=== PATIENT | male | born 1955 | race Caucasian/White ===

== ENCOUNTER → 2017-01-13 | Outpatient (CLI) | payer OTHER ==
[2017-01-13 10:45] LABS: ALBUMIN 4.1 g/dL (3.4-5.0); ALBUMIN/GLOBULIN RATIO 1.3 (1.0-1.7); CREATININE 0.8 mg/dL (0.7-1.3); GFR 98.3; POTASSIUM 4.9 mmol/L (3.5-5.1); TOTAL BILIRUBIN 0.5 mg/dL (0.2-1.0); TOTAL PROTEIN 7.2 g/dL (6.4-8.2)
[2017-01-13 10:47] LABS: CHOLESTEROL/HDL RATIO 5.4
== END | disposition home or self-care (01) ==
LOC: LAB 09:40
PROVIDERS: ATTEND Family Medicine
DX: E11.9 Type 2 diabetes mellitus without complications (principal)
CPT/HCPCS: 36415; 80053; 80061; 82043; 82570; 83036

== ENCOUNTER → 2017-05-04 | Outpatient (CLI) | payer OTHER ==
[2017-05-04 12:14] LABS: BASO # 0.1 x10^3/uL (0.0-0.2); BASO % 1 % (0-3); EOS % 4 % (0-3); HEMATOCRIT 53.5 % (39.0-53.0); HEMOGLOBIN 17.7 g/dL (13.0-17.5); LYMPH # 1.7 x10^3/uL (1.0-4.8); LYMPH % 18 % (24-48); MEAN CORPUSCULAR HEMOGLOBIN 30 pg (25-35); MEAN CORPUSCULAR HGB CONC 33 g/dL (31-37); MEAN CORPUSCULAR VOLUME 90 fL (79-100); MONO % 10 % (0-9); NEUT % 67 % (31-73); PLATELET COUNT 271 x10^3/uL (140-400); RED BLOOD COUNT 5.96 x10^6/uL (4.30-5.70); RED CELL DISTRIBUTION WIDTH 13.2 % (11.5-14.5); WHITE BLOOD COUNT 9.1 x10^3/uL (4.0-11.0)
[2017-05-04 12:28] LABS: ALBUMIN 4.4 g/dL (3.4-5.0); ALBUMIN/GLOBULIN RATIO 1.2 (1.0-1.7); CALCIUM 9.5 mg/dL (8.5-10.1); CHOLESTEROL/HDL RATIO 2.7; CREATININE 0.8 mg/dL (0.7-1.3); GFR 98.3; POTASSIUM 4.9 mmol/L (3.5-5.1); TOTAL BILIRUBIN 0.4 mg/dL (0.2-1.0); TOTAL PROTEIN 8.1 g/dL (6.4-8.2)
== END | disposition home or self-care (01) ==
LOC: LAB 11:46
PROVIDERS: ATTEND Family Medicine
DX: Z12.5 Encounter for screening for malignant neoplasm of prostate (principal); E78.2 Mixed hyperlipidemia; E11.9 Type 2 diabetes mellitus without complications
CPT/HCPCS: 36415; 80053; 80061; 83036; 85025; G0103

== ENCOUNTER → 2018-02-16 | Outpatient (CLI) | payer OTHER ==
[2017-11-15 09:25] VITALS: BP 101/57
[~2018-02-16] MED LIST: ATOR40TA59 PO; DAPA10TA PO; GLIM4TAB2 PO; LINA5TAB4 PO; LISI-338 PO; METF10007 PO
[2018-02-16 10:01] LABS: BASO % 0 % (0-3); EOS # 0.3 x10^3/uL (0.0-0.7); EOS % 3 % (0-3); HEMATOCRIT 45.4 % (39.0-53.0); HEMOGLOBIN 15.5 g/dL (13.0-17.5); LYMPH # 1.3 x10^3/uL (1.0-4.8); LYMPH % 13 % (24-48); MEAN CORPUSCULAR HEMOGLOBIN 30 pg (25-35); MEAN CORPUSCULAR HGB CONC 34 g/dL (31-37); MEAN CORPUSCULAR VOLUME 89 fL (79-100); MONO # 1.1 x10^3/uL (0.0-1.1); MONO % 11 % (0-9); NEUT # 7.3 x10^3uL (1.8-7.7); NEUT % 73 % (31-73); PLATELET COUNT 240 x10^3/uL (140-400); RED CELL DISTRIBUTION WIDTH 13.4 % (11.5-14.5)
[2018-02-16 10:17] LABS: ALBUMIN 3.9 g/dL (3.4-5.0); ALBUMIN/GLOBULIN RATIO 1.2 (1.0-1.7); CALCIUM 9.5 mg/dL (8.5-10.1); CREATININE 0.7 mg/dL (0.7-1.3); GFR 114.3; POTASSIUM 4.5 mmol/L (3.5-5.1); TOTAL BILIRUBIN 0.5 mg/dL (0.2-1.0); TOTAL PROTEIN 7.2 g/dL (6.4-8.2)
[2018-02-16 10:19] LABS: CHOLESTEROL/HDL RATIO 2.8
[2018-02-17 03:16] LABS: HEMOGLOBIN A1C 10.3 % (4.8-5.6)
== END | disposition home or self-care (01) ==
LOC: LAB 09:05
PROVIDERS: ATTEND Family Medicine
DX: Z12.5 Encounter for screening for malignant neoplasm of prostate (principal); Z23 Encounter for immunization; E11.9 Type 2 diabetes mellitus without complications; E78.2 Mixed hyperlipidemia; R53.83 Other fatigue; I10 Essential (primary) hypertension; E78.00 Pure hypercholesterolemia, unspecified; Z79.84 Long term (current) use of oral hypoglycemic drugs; Z87.891 Personal history of nicotine dependence; Z79.899 Other long term (current) drug therapy; Z80.0 Family history of malignant neoplasm of digestive organs; Z83.3 Family history of diabetes mellitus
CPT/HCPCS: 36415; 80053; 80061; 83036; 84443; 85025; G0103

== ENCOUNTER → 2018-10-04 | Outpatient (CLI) | payer OTHER ==
[2017-11-15 09:25] VITALS: BP 101/57
[~2018-10-04] MED LIST changes: +LINA5TAB PO; -LINA5TAB4 PO
[2018-10-04 09:39] LABS: BASO % 1 % (0-3); EOS # 0.4 x10^3/uL (0.0-0.7); EOS % 5 % (0-3); HEMATOCRIT 48.5 % (39.0-53.0); HEMOGLOBIN 15.9 g/dL (13.0-17.5); LYMPH # 1.2 x10^3/uL (1.0-4.8); LYMPH % 18 % (24-48); MEAN CORPUSCULAR HEMOGLOBIN 29 pg (25-35); MEAN CORPUSCULAR HGB CONC 33 g/dL (31-37); MEAN CORPUSCULAR VOLUME 89 fL (79-100); MONO # 0.8 x10^3/uL (0.0-1.1); MONO % 11 % (0-9); NEUT # 4.5 x10^3uL (1.8-7.7); NEUT % 65 % (31-73); PLATELET COUNT 225 x10^3/uL (140-400); RED BLOOD COUNT 5.48 x10^6/uL (4.30-5.70); RED CELL DISTRIBUTION WIDTH 13.5 % (11.5-14.5); WHITE BLOOD COUNT 6.9 x10^3/uL (4.0-11.0)
[2018-10-04 09:45] LABS: BILIRUBIN,URINE NEGATIVE (NEG); CLARITY,URINE CLEAR; COLOR,URINE YELLOW; NITRITE,URINE NEGATIVE (NEG); PH,URINE 6.5; PROTEIN,URINE NEGATIVE (NEG-TRACE); UROBILINOGEN,URINE 0.2 mg/dL (0.2 mg/dL)
[2018-10-04 09:54] LABS: BACTERIA,URINE 0 /HPF (0-FEW); RBC,URINE 0 /HPF (0-2); SQUAMOUS EPITHELIAL CELL,UR FEW /LPF; WBC,URINE 0 /HPF (0-4)
[2018-10-04 10:01] LABS: ALBUMIN 4.2 g/dL (3.4-5.0); ALBUMIN/GLOBULIN RATIO 1.4 (1.0-1.7); CALCIUM 9.8 mg/dL (8.5-10.1); CREATININE 0.8 mg/dL (0.7-1.3); POTASSIUM 4.5 mmol/L (3.5-5.1); TOTAL BILIRUBIN 0.6 mg/dL (0.2-1.0); TOTAL PROTEIN 7.3 g/dL (6.4-8.2)
[2018-10-04 10:07] LABS: CHOLESTEROL/HDL RATIO 2.8
[2018-10-05 11:17] LABS: HEMOGLOBIN A1C 9.7 % (4.8-5.6)
[2018-10-06 09:14] LABS: HCV ULTRA QUANT PCR HCV Not Detected IU/mL (.)
== END | disposition home or self-care (01) ==
LOC: LAB 08:51
PROVIDERS: ATTEND Family Medicine
DX: Z12.5 Encounter for screening for malignant neoplasm of prostate (principal)
CPT/HCPCS: 36415; 80053; 80061; 81001; 83036; 85025; 87521; G0103

== ENCOUNTER → 2019-07-15 | Outpatient (CLI) | payer OTHER ==
[2017-11-15 09:25] VITALS: BP 101/57
[~2019-07-15] MED LIST changes: -GLIM4TAB2 PO; +GLIM4TAB8 PO
[2019-07-15 11:44] LABS: BASO % 1 % (0-3); EOS # 0.4 x10^3/uL (0.0-0.7); EOS % 5 % (0-3); HEMATOCRIT 49.3 % (39.0-53.0); HEMOGLOBIN 16.5 g/dL (13.0-17.5); LYMPH # 1.4 x10^3/uL (1.0-4.8); LYMPH % 20 % (24-48); MEAN CORPUSCULAR HEMOGLOBIN 30 pg (25-35); MEAN CORPUSCULAR HGB CONC 33 g/dL (31-37); MEAN CORPUSCULAR VOLUME 89 fL (79-100); MONO # 0.6 x10^3/uL (0.0-1.1); MONO % 9 % (0-9); NEUT # 4.4 x10^3/uL (1.8-7.7); NEUT % 65 % (31-73); PLATELET COUNT 241 x10^3/uL (140-400); RED BLOOD COUNT 5.52 x10^6/uL (4.30-5.70); RED CELL DISTRIBUTION WIDTH 13.7 % (11.5-14.5); WHITE BLOOD COUNT 6.8 x10^3/uL (4.0-11.0)
[2019-07-15 11:50] LABS: BILIRUBIN,URINE NEGATIVE (NEG); CLARITY,URINE CLEAR; COLOR,URINE YELLOW; NITRITE,URINE NEGATIVE (NEG); PROTEIN,URINE NEGATIVE (NEG-TRACE); UROBILINOGEN,URINE 0.2 mg/dL (0.2 mg/dL)
[2019-07-15 11:59] LABS: ALBUMIN 4.2 g/dL (3.4-5.0); ALBUMIN/GLOBULIN RATIO 1.3 (1.0-1.7); CALCIUM 9.3 mg/dL (8.5-10.1); CREATININE 0.7 mg/dL (0.7-1.3); GFR 113.9; POTASSIUM 4.7 mmol/L (3.5-5.1); TOTAL BILIRUBIN 0.5 mg/dL (0.2-1.0); TOTAL PROTEIN 7.5 g/dL (6.4-8.2)
[2019-07-15 12:02] LABS: CHOLESTEROL/HDL RATIO 3.1
[2019-07-15 12:05] LABS: SQUAMOUS EPITHELIAL CELL,UR OCC /LPF
[2019-07-15 12:06] LABS: BACTERIA,URINE 0 /HPF (0-FEW); RBC,URINE 0 /HPF (0-2); WBC,URINE OCC /HPF (0-4)
[2019-07-15 23:08] LABS: HEMOGLOBIN A1C 9.5 % (4.8-5.6)
[2019-07-17 13:11] LABS: FREE PSA/PSA RATIO 27.5 % (.); PSA FREE 0.11 ng/mL; PSA TOTAL 0.4 ng/mL (0.0-4.0)
== END | disposition home or self-care (01) ==
LOC: LAB 10:57
PROVIDERS: ATTEND Family Medicine
DX: Z00.00 Encounter for general adult medical examination without abnormal findings (principal); E11.9 Type 2 diabetes mellitus without complications; E78.2 Mixed hyperlipidemia
CPT/HCPCS: 36415; 80053; 80061; 81001; 82043; 83036; 84153; 84154; 85025

== ENCOUNTER → 2020-07-17 | Outpatient (CLI) | payer OTHER ==
[2017-11-15 09:25] VITALS: BP 101/57
[~2020-07-17] MED LIST changes: -LISI-338 PO; +LISI-517 PO
[2020-07-17 11:14] LABS: BASO # 0.1 x10^3/uL (0.0-0.2); BASO % 1 % (0-3); EOS # 0.4 x10^3/uL (0.0-0.7); EOS % 6 % (0-3); HEMATOCRIT 49.7 % (39.0-53.0); HEMOGLOBIN 16.6 g/dL (13.0-17.5); LYMPH # 1.5 x10^3/uL (1.0-4.8); LYMPH % 20 % (24-48); MEAN CORPUSCULAR HEMOGLOBIN 30 pg (25-35); MEAN CORPUSCULAR HGB CONC 33 g/dL (31-37); MEAN CORPUSCULAR VOLUME 90 fL (79-100); MONO # 0.8 x10^3/uL (0.0-1.1); MONO % 10 % (0-9); NEUT # 4.8 x10^3/uL (1.8-7.7); NEUT % 63 % (31-73); PLATELET COUNT 231 x10^3/uL (140-400); RED BLOOD COUNT 5.55 x10^6/uL (4.30-5.70); RED CELL DISTRIBUTION WIDTH 13.4 % (11.5-14.5); WHITE BLOOD COUNT 7.6 x10^3/uL (4.0-11.0)
[2020-07-17 11:37] LABS: ALBUMIN/GLOBULIN RATIO 1.2 (1.0-1.7); CALCIUM 9.1 mg/dL (8.5-10.1); CREATININE 0.7 mg/dL (0.7-1.3); GFR 113.5; POTASSIUM 4.2 mmol/L (3.5-5.1); TOTAL BILIRUBIN 0.5 mg/dL (0.2-1.0); TOTAL PROTEIN 7.4 g/dL (6.4-8.2)
[2020-07-18 00:08] LABS: HEMOGLOBIN A1C 9.7 % (4.8-5.6)
== END ==
LOC: LAB 10:37
PROVIDERS: ATTEND Family Medicine
DX: Z12.5 Encounter for screening for malignant neoplasm of prostate (principal); E11.9 Type 2 diabetes mellitus without complications; E78.2 Mixed hyperlipidemia
CPT/HCPCS: 36415; 80053; 80061; 83036; 85025; G0103

== ENCOUNTER → 2020-10-06 | Outpatient (CLI) | payer OTHER ==
[2017-11-15 09:25] VITALS: BP 101/57
--- NOTE | 2020-10-06 16:29 | RAD ---
STUDY: MRI of the right shoulder without contrast INDICATION: Tendinopathy of both shoulders. COMPARISON: None. TECHNIQUE: Multiplanar MR imaging of the right shoulder performed without the use of intravenous or i ntra-articular contrast. FINDINGS: AC joint: Mild/moderate AC joint arthrosis. Very mild subacromial subdeltoid bursitis with bursal flu id overlying the supraspinatus tendon measuring up to 3 mm in thickness. Mildly thickened coracoacrom ial ligament Rotator cuff: Mild supraspinatus tendinosis. Thin, low-grade tear of the anterior supraspinatus at th e footprint involving less than 20 percent tendon cross-sectional thickness, image 16 series 6. Intac t infraspinatus, teres minor and subscapularis. Normal rotator cuff muscular bulk. Labrum: Degenerative SLAP-type tear extending from superior to posterior/superior. Long head biceps tendon: Intact and normally located. Cartilage: No full-thickness chondral defect. Bones: Marrow signal is within normal limits. Miscellaneous: Thickened inferior joint capsule with mild surrounding edema. Edema at the rotator int erval. Small amount of glenohumeral joint fluid. Fluid distention of the long head biceps tendon salazar th. Impression: 1. Thickened and edematous inferior joint capsule as well as some edema at the rotator interval. Thi s appearance can be seen with adhesive capsulitis. 2. Fluid distention of the long head biceps tendon sheath out of proportion to fluid within the join t space suggestive of tenosynovitis. The tendon remains intact and normally located. 3. No high-grade or full-thickness rotator cuff tear. Mild supraspinatus tendinosis and a tiny/low-g rade interstitial tear of the anterior supraspinatus at the footprint. 4. Degenerative SLAP-type tear extending from superior to posterior/superior. 5. Mild/moderate AC joint arthrosis and very mild subacromial subdeltoid bursitis. Electronically signed by: KALINA LEIVA MD (10/06/2020 4:27 PM) [id number]
--- NOTE | 2020-10-06 16:36 | RAD ---
STUDY: MRI of the left shoulder without contrast INDICATION: Tendinopathy of both shoulders. COMPARISON: None. TECHNIQUE: Multiplanar MR imaging of the left shoulder performed without the use of intravenous or in tra-articular contrast. FINDINGS: AC joint: Mild/moderate AC joint arthrosis. Trace fluid within the subacromial subdeltoid bursa but n ot to the extent typical of bursitis. Rotator cuff: Mild supraspinatus tendinosis. There may be a small amount of hydroxyapatite within the supraspinatus leading edge, image 11 series 18. Intact infraspinatus, teres minor and subscapularis. Rotator cuff muscular bulk is maintained. Labrum: Degenerative SLAP-type tear from superior to posterior/superior with extension of the tear to involve the intra-articular portion of the long head biceps, images 9 through 11 series 8. Long head biceps tendon: Low-grade interstitial tear of the intra-articular portion, as above. The ex tra-articular portion is intact. Cartilage: No full-thickness chondral defect is apparent. Bones: No fracture or focally aggressive marrow signal abnormality. Miscellaneous: Mildly thickened and edematous inferior joint capsule but less noticeable relative to the right shoulder. Edema seen at the rotator interval. Minimal shoulder joint fluid. Mild volume flu id within the long head biceps tendon sheath. Impression: 1. Constellation of findings which can be seen with adhesive capsulitis noting that there is less pr onounced thickening/edema of the inferior joint capsule relative to the contralateral shoulder that w as imaged on the same day. 2. No high-grade or full-thickness rotator cuff tear. Mild supraspinatus tendinosis. Possible small focus of hydroxyapatite deposition within the supraspinatus leading edge. No overt edema immediately adjacent to this finding to help suggest active calcific tendinitis. 3. Degenerative SLAP-type tear extending to involve the intra-articular long head biceps. 4. Mild/moderate AC joint arthrosis. Electronically signed by: KALINA LEIVA MD (10/06/2020 4:34 PM) [id number]
--- NOTE | 2020-10-06 17:04 | RAD ---
EXAM: Cervical spine MRI without contrast. HISTORY: Radiculopathy. TECHNIQUE: Multiplanar, multisequence magnetic resonance imaging of the cervical spine was performed without contrast. COMPARISON: None. FINDINGS: There is minimal retrolisthesis of C5 on C6. There is degenerative endplate remodeling with disc space narrowing, osteophyte ptosis and Schmorl's node formation at this level. There is additio nal endplate remodeling at the remainder of the cervical levels. There is no fracture or suspicious o sseous lesion. There is deformation of the cervical spinal cord at the mid and lower cervical levels due to central canal stenosis. There is no convincing spinal cord signal abnormality to suggest myelomalacia or chivo a. There is nonspecific signal change within the robert, most commonly due to chronic small vessel dise ase in patients of this age. At C2-C3, there is no stenosis. At C3-C4, there is mild left facet arthropathy. There is mild left foraminal stenosis. At C4-C5, there is a disc bulge and endplate remodeling. There is mild bilateral facet arthropathy. T here is uncovertebral arthropathy. There is moderate right and mild left foraminal stenosis. There is flattening of the ventral aspect of the spinal cord and moderate central canal stenosis measuring 7. 1 mm in anterior posterior dimension. At C5-C6, there is a right posterior lateral disc protrusion and osteophyte complex superimposed on a disc bulge and endplate ossified ptosis. There is mild bilateral facet arthropathy. There is right g reater than left uncovertebral arthropathy. There is severe right and moderate left foraminal stenosi s. There is deformation of the spinal cord and moderate to severe central canal stenosis measuring 6. 4 mm in anterior posterior dimension. At C6-C7, there is a broad-based left paracentral to lateral recess disc protrusion superimposed on a disc bulge and endplate remodeling. There is mild bilateral facet arthropathy. There is moderate lef t foraminal stenosis. There is flattening of the ventral aspect of spinal cord and [id number] c entral canal stenosis measuring 7.7 mm in anterior posterior dimension. IMPRESSION: 1. Multilevel degenerative change involving the cervical spine, described in detail above. This is as sociated with mild left foraminal stenosis at C3-C4, moderate right and mild left foraminal and moder ate central canal stenosis at C4-C5, severe right and moderate left foraminal and moderate to severe central canal stenosis at C5-C6 and moderate left foraminal and mild to moderate central canal stenos is at C6-C7. 2. Deformation of the cervical spinal cord at the mid lower cervical levels due to central canal sten osis. No convincing spinal cord edema or myelomalacia is seen. Electronically signed by: Rona Jerry MD (10/06/2020 5:01 PM) [id number]
== END ==
LOC: MRI 12:33
PROVIDERS: ATTEND Family Medicine
DX: M19.012 Primary osteoarthritis, left shoulder (principal); M19.011 Primary osteoarthritis, right shoulder; M48.02 Spinal stenosis, cervical region; M47.22 Other spondylosis with radiculopathy, cervical region
CPT/HCPCS: 72141; 73221

== ENCOUNTER → 2020-11-26 | Outpatient (CLI) | payer OTHER ==
[2017-11-15 09:25] VITALS: BP 101/57
[~2020-11-26] MED LIST changes: +CALC500T30 PO; +CHOL5000 PO
[2020-11-26 14:36] LABS: BASO % 1 % (0-3); EOS # 0.3 x10^3/uL (0.0-0.7); EOS % 4 % (0-3); HEMATOCRIT 43.8 % (39.0-53.0); HEMOGLOBIN 15.1 g/dL (13.0-17.5); LYMPH # 1.6 x10^3/uL (1.0-4.8); LYMPH % 21 % (24-48); MEAN CORPUSCULAR HEMOGLOBIN 31 pg (25-35); MEAN CORPUSCULAR HGB CONC 35 g/dL (31-37); MEAN CORPUSCULAR VOLUME 89 fL (79-100); MONO # 0.8 x10^3/uL (0.0-1.1); MONO % 11 % (0-9); NEUT % 64 % (31-73); PLATELET COUNT 233 x10^3/uL (140-400); RED BLOOD COUNT 4.94 x10^6/uL (4.30-5.70); RED CELL DISTRIBUTION WIDTH 13.3 % (11.5-14.5); WHITE BLOOD COUNT 7.8 x10^3/uL (4.0-11.0)
[2020-11-26 14:47] LABS: ALBUMIN 3.9 g/dL (3.4-5.0); ALBUMIN/GLOBULIN RATIO 1.4 (1.0-1.7); CALCIUM 8.9 mg/dL (8.5-10.1); CREATININE 0.8 mg/dL (0.7-1.3); GFR 97.3; POTASSIUM 4.1 mmol/L (3.5-5.1); TOTAL BILIRUBIN 0.4 mg/dL (0.2-1.0); TOTAL PROTEIN 6.6 g/dL (6.4-8.2)
[2020-11-27 04:23] LABS: HEMOGLOBIN A1C 9.5 % (4.8-5.6)
== END ==
LOC: SURGPAT 13:05
PROVIDERS: ATTEND Neurological Surgery
DX: Z01.818 Encounter for other preprocedural examination (principal); M48.02 Spinal stenosis, cervical region; M54.12 Radiculopathy, cervical region
CPT/HCPCS: 36415; 80053; 83036; 85025; 87641

== ENCOUNTER 2020-12-07 08:28 | Inpatient (IN) | payer OTHER ==
[2020-11-26 14:39] VITALS: BP 111/77
[2020-12-07] VITALS (8 sets, daily range): BP systolic 108–138; BP diastolic 69–78
[~2020-12-07] VITALS: Ht 175.3 cm; Wt 95.8 kg
[~2020-12-07 08:28] MED LIST changes: +BUPIVACAINE-EPI 0.5%-1:200000 MPF 30 ML VIAL. ONE; +GELATIN SPONGE SIZE 100. ONE; +HYDROmorphone 2 MG/ML VIAL IVP PRN; +IV RINGERS,LACTATED 1000ML 1,000 ML IV SCH; +PROCHLORPERAZINE 10 MG/2 ML VIAL. IVP PRN; +THROMBIN TOPICAL 20,000 UNIT SPRAY.SYRN KIT TP ONE; +fentaNYL PF VIAL 100 MCG/2 ML VIAL IVP PRN
[2020-12-07] MEDS: INSULIN LISPRO 100 UNIT/ML 3ML VIAL for OP,RR ONLY. SQ PRN ×3 (09:05→15:28)
--- NOTE | 2020-12-07 09:20 | PREOP HP ---
DATE OF SERVICE: 12/07/2020 HISTORY OF PRESENT ILLNESS: The patient is a pleasant 64-year-old man who is having difficulty with neck, shoulder and arm pain and weakness. He said that beginning in mid May, he developed neck pain and pain, which would radiate to both of his shoulders. The problem began after playing golf. He says that the pain comes and goes and is primarily in his shoulders and he feels as though it can reach 9/10. Activity such as lying down on his side increases his pain. He says mornings are quite painful for him. Changing positions and sitting can help. He is taking Advil. He has not fallen. He said he underwent 8 sessions of cervical physical therapy, which he said helped his range of motion and neck pain to a degree, but had no impact on his arm pain. He has been seeing orthopedic surgery for his shoulder and I believe surgery has been recommended for that. CURRENT MEDICATIONS: Tradjenta, lisinopril, glimepiride, atorvastatin, metformin, Aziga, Advil. PAST MEDICAL HISTORY: Diabetes. PAST SURGICAL HISTORY: Right knee surgery in 1977. FAMILY HISTORY: Alzheimer disease, cancer, diabetes. SOCIAL HISTORY: Retired, , nonsmoker. Drinks alcohol 1-2 times per week. ALLERGIES: No known drug allergies. REVIEW OF SYSTEMS: A 12-point review of systems was performed and is noncontributory except that mentioned above. PHYSICAL EXAMINATION: GENERAL: Alert, pleasant, in no acute distress. HEENT: Head normocephalic, atraumatic. NECK: Mild tenderness to palpation of posterior cervical region. SKIN: Warm and dry. MUSCULOSKELETAL: Cervical range of motion is restricted. Cervical paraspinal muscle bulk is normal. EXTREMITIES: No clubbing, cyanosis or edema. NEUROLOGIC: Alert and oriented x3. Speech is clear. Strength is 5/5 in the upper and lower extremities except for biceps and triceps bilaterally were 4/5, sensory was intact to light touch in the upper and lower extremities, reflexes were present and symmetric in the upper and lower extremities. Knee jerks were 3+. There was no sustained clonus, normal gait. IMAGING DATA: I reviewed his cervical MRI scan from 10/06/2020. On that study at C4-5, there is moderate canal stenosis with moderate right foraminal narrowing. At C5-6, there is severe canal stenosis with severe right and moderate left foraminal narrowing. At C6-7, there is disk bulging at this level, which is associated with moderate left foraminal stenosis. However, central canal stenosis is mild to moderate. ASSESSMENT AND PLAN: The patient has moderately severe stenosis at C4-5 and severe stenosis at C5-6 along with radicular symptoms including weakness of his triceps and biceps bilaterally. I explained that my feeling was he should undergo anterior cervical microdiskectomy and fusion at both of these levels with decompression of the spinal cord, which would also open up the neural foramen. I explained that this surgery should be done prior to any elective shoulder surgery, which very often does require some manipulation of the cervical spine. I outlined the surgery and the risk. I discussed the expected postoperative course. He understands and would like to proceed. ZURI/ASHVIN DR: Ray TID: [id number]
[2020-12-07] MEDS ORDERED: PROPOFOL 10 MG/ML (20ML) VIAL. IV ONE (09:38)
[2020-12-07] MEDS ORDERED: DEXAMETHASONE SOD PHOS 4 MG/ML VIAL ONE (09:39)
[2020-12-07] MEDS ORDERED: ONDANSETRON PF 4 MG/2 ML VIAL. ONE (09:39)
[2020-12-07] MEDS ORDERED: LIDOCAINE 2% PF 5 ML VIAL. ONE (09:39)
[2020-12-07] MEDS ORDERED: ROCURONIUM 50 MG/5 ML VIAL. ONE (09:39)
[2020-12-07] MEDS ORDERED: fentaNYL PF VIAL 100 MCG/2 ML VIAL ONE ×2 (09:40→15:17)
[2020-12-07] MEDS ORDERED: PROPOFOL 50 ML IV ONE ×3 (09:41→14:36)
[2020-12-07] MEDS ORDERED: REMIFENTANIL 2 MG VIAL. IV ONE ×2 (09:42→14:29)
[2020-12-07] MEDS ORDERED: SUCCINYLCHOLINE 200 MG/10 ML VIAL. ONE (11:55)
[2020-12-07] MEDS ORDERED: SEVOFLURANE > 120 MINUTES. IH ONE (13:16)
[2020-12-07] MEDS ORDERED: GLYCOPYRROLATE 1 MG/5 ML VIAL. ONE (14:47)
[2020-12-07] MEDS ORDERED: NEOSTIGMINE METHYLSULFATE 5 MG/5 ML SYRINGE. ONE (14:47)
[2020-12-07] MEDS ORDERED: CALCIUM CARBONATE 500 MG TAB.CHEW PO PRN (15:15)
[2020-12-07] MEDS ORDERED: 0.9 % SODIUM CHLORIDE 10 ML DISP.SYRIN. IV PRN (15:15)
[2020-12-07] MEDS ORDERED: MAGNESIUM HYDROXIDE 2,400 MG/30 ML ORAL.SUSP. PO PRN (15:15)
[2020-12-07] MEDS ORDERED: NALOXONE 0.4 MG/ML VIAL. IV PRN (15:15)
[2020-12-07] MEDS ORDERED: MAG HYDROX/ALUMINUM HYD/SIMETH 30 ML ORAL.SUSP PO PRN (15:15)
[2020-12-07] MEDS ORDERED: ACETAMINOPHEN 325 MG TABLET. PO PRN (15:15)
[2020-12-07] MEDS ORDERED: diphenhydrAMINE HCL 25 MG CAPSULE PO PRN (15:15)
[2020-12-07] MEDS ORDERED: DEXTROSE 50% 25 GM / 50ML DISP.SYRIN. IV PRN (15:15)
[2020-12-07] MEDS ORDERED: HYDROcodone/APAP 5/325MG 1 TAB TABLET PO PRN (15:15)
[2020-12-07] MEDS ORDERED: fentaNYL PF VIAL 100 MCG/2 ML VIAL IVP PRN (15:15)
[2020-12-07] MEDS: fentaNYL PF VIAL 100 MCG/2 ML VIAL IVP PRN ×3 (15:19→17:55)
[2020-12-07] MEDS ORDERED: INSULIN LISPRO 100 UNIT/ML 3ML VIAL for OP,RR ONLY. SQ ONE ×3 (15:30)
[2020-12-07] MEDS ORDERED: MORPHINE SULFATE 2 MG/ML INJ. ONE ×2 (15:31→15:54)
[2020-12-07] MEDS: MORPHINE SULFATE 2 MG/ML INJ. IVP PRN ×4 (15:35→16:09)
[2020-12-07] MEDS ORDERED: PROCHLORPERAZINE 10 MG/2 ML VIAL. ONE (15:42)
[2020-12-07] MEDS: POTASSIUM CL 20MEQ-0.45% NACL 1,000 ML IV SCH (16:00)
--- NOTE | 2020-12-07 16:15 | NUR ---
Arrived to the unit by bed from PACU. Drowsy but awakens easily. Able to move all extremities without difficulty. Doses complain neck pain. Ice pack applied to back of neck and repositioned. Radial and dorsal pulses + bilaterally, no c/o numbness or tingling. Anterior neck dressing is d/i with soft collar. IVF's intact and infusing. O2 at 2l per n/c. VICKIE's and FERNANDO's on bilaterally. Oriented to room and controls. Side rails up x's 2 with call light in reach. at bedside. Cont. monitor.
[2020-12-07] MEDS: metFORMIN 500 MG TABLET PO SCH (17:48)
[2020-12-07] MEDS: METHOCARBAMOL 750 MG TABLET PO PRN ×2 (17:55→17:56)
[2020-12-07] MEDS: HYDROcodone/APAP 5/325MG 1 TAB TABLET PO PRN (20:24)
[2020-12-07] MEDS: GLIMEPIRIDE 2 MG TABLET. PO SCH (20:25)
[2020-12-07] MEDS: ceFAZolin SODIUM IV Push 1 GM VIAL. IVP SCH (20:25)
[2020-12-07] MEDS: DOCUSATE SODIUM 100 MG CAPSULE. PO SCH (20:25)
[2020-12-07] MEDS ORDERED: ATORVASTATIN CALCIUM 40 MG TABLET. PO SCH (21:00)
[2020-12-08] MEDS: HYDROcodone/APAP 5/325MG 1 TAB TABLET PO PRN ×2 (02:13→11:44)
[2020-12-08 02:27] VITALS: BP 129/78
[2020-12-08] MEDS: ceFAZolin SODIUM IV Push 1 GM VIAL. IVP SCH ×2 (05:09→11:46)
[2020-12-08] MEDS: POTASSIUM CL 20MEQ-0.45% NACL 1,000 ML IV SCH (05:20)
[2020-12-08 06:30] VITALS: BP 114/70
[2020-12-08] MEDS: METHOCARBAMOL 750 MG TABLET PO PRN (08:09)
[2020-12-08] MEDS: GLIMEPIRIDE 2 MG TABLET. PO SCH (08:09)
[2020-12-08] MEDS: metFORMIN 500 MG TABLET PO SCH (08:10)
[2020-12-08] MEDS: DOCUSATE SODIUM 100 MG CAPSULE. PO SCH (08:10)
[2020-12-08] MEDS ORDERED: LISINOPRIL 5 MG TABLET. PO SCH (09:00)
[2020-12-08] MEDS ORDERED: CHOLECALCIFEROL (VITAMIN D3) 1,000 UNIT TABLET PO SCH (09:00)
[2020-12-08] MEDS ORDERED: CALCIUM CARBONATE 500 MG TABLET PO SCH (09:00)
[2020-12-08] MEDS ORDERED: METH-562 PO (10:02)
[2020-12-08] MEDS ORDERED: HYDR-2761 PO (10:02)
--- NOTE | 2020-12-08 10:04 | DISCH ---
DISCHARGE INSTRUCTIONS Condition on Discharge Condition on Discharge: Stable Activity After Discharge Activity Instructions for Disc: Activity as tolerated, Avoid exertion Other activity instructions: soft collar for comfort Bathing Instructions: Shower-keep dressing dry Lifting Instructions after Dis: No heavy lifting, No pulling or pushing, Do not lift >10 pounds Diet after Discharge Additional Diet Restrictions: resume home diet, soft foods Wound Incision Care Wound/Incision Care: Ice to area for comfort Contacting the DRSergo after DC Call your doctor for: Concerns you may have Follow-Up Follow up with: Dr. Souza's nurse in 2 weeks [phone] MATHEW SOUZA MD Dec 08, 2020 10:04
[2020-12-08 10:40] VITALS: BP 125/77
--- NOTE | 2020-12-08 11:54 | OP ---
DATE OF SURGERY: 12/07/2020 PREOPERATIVE DIAGNOSIS: Cervical spinal stenosis, cervical myelopathy and cervical radiculopathy, C4-C5, C5-C6. POSTOPERATIVE DIAGNOSIS: Cervical spinal stenosis, cervical myelopathy and cervical radiculopathy, C4-C5, C5-C6. OPERATION PERFORMED: Anterior cervical microdiskectomy C4-C5, C5-C6; anterior cervical interbody fusion, C4-C5, C5-C6; anterior cervical plate, C4, C5, C6. The operation was done with multimodality monitoring including EMG, SSEP, motor evoked potentials and NIMS monitoring. We also used fluoroscopy and microscopic dissection. GLAZING DEPARTMENT SUPERVISOR: ANDRESSA Pisano, assisted with the surgery. She assisted with the exposure, the 2-level diskectomy and fusion as well as the closure. OPERATIVE INDICATIONS: The patient is a pleasant 64-year-old man who developed intractable back and ____ pain, which radiated to both of his shoulders and arms. He was found to have diffuse weakness and increased reflexes in his lower extremities. On imaging studies, there was severe stenosis at C5-C6 and moderately severe stenosis at C4-C5, along with neural foraminal narrowing and I recommended a 2-level ACDF. He understood the surgery and the risks. He failed to improve with physical therapy. He strongly wished to go ahead. DESCRIPTION OF THE PROCEDURE: Following general endotracheal anesthesia, the patient was positioned supine on the operating room table. The anterior cervical region was prepped and draped in a standard fashion. A great deal of care was taken by Anesthesia to ensure there was no motion of the neck during the intubation process. Using fluoroscopic guidance, an incision was made from the midline around toward the right side in a skin crease. I dissected down through skin and subcutaneous tissue and then dissected around the medial aspect of the sternocleidomastoid and carotid artery sheath down the anterior cervical vertebral bodies. I gently reflected the trachea and esophagus contralaterally and placed [place] microdisk retractors entering at C5-C6. I brought in the microscope and I incised the anterior annulus and then scraped away the cartilaginous endplate along with using pituitaries. Posteriorly, I used a high speed air drill and drilled the spurring, opened the annulus and the ligament and worked a little widely bilaterally. I did use distraction pins into C5 and C6 and I did gently distract the disk space. After preparing the endplates, I placed a 7 mm interbody fusion cage packed with allograft bone. I then removed the pin from C6 and moved it up to C4 and I performed the identical operation at C4-C5. Again, there was significant stenosis. Again, I opened the annulus and the ligament and worked widely bilaterally and assured myself of excellent decompression. Again, I placed a 7 mm interbody fusion cage, which was packed with allograft bone. I then on-laid an anterior plate of 30 mm and I used six 14 mm screws to secure this and these were locked. I irrigated copiously with antibiotic solution. Hemostasis, prior to placing the interbody fusion cages, was perfect. Hemostasis at the end was perfect. I did Valsalva the patient as well and assured myself of again perfect hemostasis. I used copious irrigation and then I closed the wound in layers with absorbable suture and the skin was closed with 4-0 subcuticular stitch. I felt the surgery went very well and the patient was taken to recovery room with excellent strength. I was quite pleased with the surgery. PATY/SHEY/GABRIELLE DR: Joe TID: [id number]
--- NOTE | 2020-12-08 13:42 | NUR ---
Patient left with his around 1320. Discharge education completed by this nurse, therapy, and the EMERGENCY OPERATOR prior to dismissal. Dressing to anterior neck CDI with soft collar in place. Pain meds given prior to discharge and scripts sent to his pharmacy by Dr Zhang office. IV removed without complications. No concerns noted at discharge.
--- NOTE | 2020-12-09 11:43 | DS ---
DATE OF DISCHARGE: 12/08/2020 OPERATION PERFORMED: ACDF, C4-C5, C5-C6. HISTORY OF PRESENT ILLNESS: The patient is a pleasant 64-year-old man who developed intractable pain in both of his shoulders and arms. He was found to have diffuse weakness and increased reflexes in his lower extremities. On imaging studies, there was severe stenosis at C5-C6 and moderately severe stenosis at C4-C5 with neural foraminal narrowing. I recommended a 2-level ACDF. He understood the surgery and the risks and wished to proceed. He did not improve with physical therapy. HOSPITAL COURSE: He was admitted to the floor postoperatively where he did well. He was up ambulating in the room and in the halls. Physical therapy was initiated and instruction was given to him regarding his activities. Pain is well controlled and he is in good condition to discharge home. DISCHARGE MEDICATIONS: Resume his medications per the MRAD. DISCHARGE INSTRUCTIONS: He was instructed regarding incision care, activity restrictions and expectations for the next several weeks. He will contact us with any questions or concerns. RAFA DR: Ray TID: [id number]
--- NOTE | 2020-12-10 17:08 | PATHOLOGY ---
[facility] Accession Number: [id number] . 01 Material submitted: . vertebral column - CERVICAL DISC . 01 Clinical history: . CERVICAL STENOSIS AND RADICULOPATHY ACDF C4-5,C5-6 . 02 Diagnosis: Segments of fibrocartilaginous tissue and bone, cervical disc: - Degenerative changes of fibrocartilaginous tissue. (JPM:pit; 12/10/2020) [facility] 12/10/2020 1605 Local . 02 Comment: There is no evidence of an acute inflammatory process or malignancy. (JPM:pit; 12/10/2020) . 02 Electronically signed: . Carmelo Schmidt MD, Pathologist NPI- [id number] . 01 Gross description: . The specimen is received in formalin, labeled "Venkat Lomeli, cervical disc". Received are multiple segments of pale howe fibrous tissue admixed with gritty bone measuring 3.0 x 2.2 x 0.4 cm in aggregate dimensions. The specimen is filtered and entirely submitted in cassette A1, following light decalcification. (CAA; 12/09/2020) QAC/QAC 12/09/2020 1135 Local . 02 Pathologist provided ICD-10: M99.71, M54.12 . 02 CPT . 363762, [id number] Specimen Comment: A courtesy copy of this report has been sent to [phone], [phone] Specimen Comment: [id number] Specimen Comment: Report sent to / DR GONSALEZ Performed at: 01 [facility] [address], [place], [place] [id number] MD Omar Esteban MD Phone: [phone] Performed at: 02 [facility] [address] [place], [place] [id number] MD Carmelo Schmidt MD Phone: [phone]
== END 2020-12-08 14:00 | disposition home or self-care (01) | DRG 472 ==
LOC: SURG 08:28 → 4 SOUTHEST 15:30 → UNDOADMIN 15:48 → 4 SOUTHEST 15:48
PROVIDERS: ADMIT Neurological Surgery; ATTEND Neurological Surgery
PROC: 0RB30ZZ Excision of Cervical Vertebral Disc, Open Approach (ICD-10-PCS; 2020-12-07)
PROC: 00NW0ZZ Release Cervical Spinal Cord, Open Approach (ICD-10-PCS; 2020-12-07)
PROC: 4A11X4G Monitoring of Peripheral Nervous Electrical Activity, Intraoperative, External Approach (ICD-10-PCS; 2020-12-07)
PROC: 0RG20A0 Fusion of 2 or more Cervical Vertebral Joints with Interbody Fusion Device, Anterior Approach, Anterior Column, Open Approach (ICD-10-PCS; principal; 2020-12-07 11:00)
DX: M48.02 Spinal stenosis, cervical region (principal); G95.9 Disease of spinal cord, unspecified; E11.9 Type 2 diabetes mellitus without complications; M54.12 Radiculopathy, cervical region; Z82.0 Family history of epilepsy and other diseases of the nervous system; Z83.3 Family history of diabetes mellitus
CPT/HCPCS: 76000; 82962; A4222; A4364; A4657; A4930; A6254; A6258; C1713; C1821; J0330; J0690; J0780; J1100; J1815; J2270; J2405; J2704; J2710; J3010; J3490; 97110-GP; G0378

== ENCOUNTER → 2020-12-28 | Outpatient (CLI) | payer OTHER ==
[2020-12-08 10:40] VITALS: BP 125/77
[~2020-12-28] MED LIST changes: -BUPIVACAINE-EPI 0.5%-1:200000 MPF 30 ML VIAL. ONE; -GELATIN SPONGE SIZE 100. ONE; +HYDR-2761 PO; -HYDROmorphone 2 MG/ML VIAL IVP PRN; -IV RINGERS,LACTATED 1000ML 1,000 ML IV SCH; +METH-562 PO; -PROCHLORPERAZINE 10 MG/2 ML VIAL. IVP PRN; -THROMBIN TOPICAL 20,000 UNIT SPRAY.SYRN KIT TP ONE; -fentaNYL PF VIAL 100 MCG/2 ML VIAL IVP PRN
--- NOTE | 2020-12-28 12:26 | RAD ---
EXAM: XR CERVICAL SPINE 2-3V. HISTORY: Postoperative pain, cervical fusion. COMPARISON: None. FINDINGS: Anterior cervical discectomy and fusion changes are noted at C4-C6. There is 3 mm anterolis thesis at C4-5. There is no prevertebral soft tissue swelling. Facet osteoarthritis is mild to modera te bilaterally from C2 through C5. No fractures are identified. IMPRESSION: 1. C4-C6 anterior cervical discectomy and fusion. 2. 3 mm anterolisthesis at C4-5. Electronically signed by: Brett Hoyos MD (12/28/2020 12:23 PM) [id number]
== END ==
LOC: RAD 11:43
PROVIDERS: ATTEND Neurological Surgery
DX: M47.22 Other spondylosis with radiculopathy, cervical region (principal); M43.12 Spondylolisthesis, cervical region; Z98.890 Other specified postprocedural states
CPT/HCPCS: 72040

== ENCOUNTER 2021-01-26 06:13 | Day surgery (SDC) | payer OTHER ==
[~2021-01-26] VITALS: Ht 175.3 cm; Wt 86.3 kg
[~2021-01-26 06:13] MED LIST changes: +HYDROmorphone 2 MG/ML VIAL IVP PRN; +IV RINGERS,LACTATED 1000ML 1,000 ML IV SCH; +MORPHINE SULFATE 2 MG/ML INJ. IVP PRN; +PROCHLORPERAZINE 10 MG/2 ML VIAL. IVP PRN; +fentaNYL PF VIAL 100 MCG/2 ML VIAL IVP PRN
[2021-01-26 06:39] VITALS: BP 107/73
[2021-01-26] MEDS: INSULIN LISPRO 100 UNIT/ML 3ML VIAL for OP,RR ONLY. SQ PRN ×2 (07:04→09:42)
[2021-01-26] MEDS ORDERED: MIDAZOLAM HCL/PF 2 MG/2 ML VIAL. ONE (07:07)
[2021-01-26] MEDS ORDERED: BUPIVACAINE MPF 0.5% 30 ML VIAL. ONE (07:07)
[2021-01-26] MEDS ORDERED: LIDOCAINE 2% PF 5 ML VIAL. ONE (07:35)
[2021-01-26] MEDS ORDERED: PROPOFOL 10 MG/ML (20ML) VIAL. IV ONE (07:36)
[2021-01-26] MEDS ORDERED: ONDANSETRON PF 4 MG/2 ML VIAL. ONE (07:36)
[2021-01-26] MEDS ORDERED: ROCURONIUM 50 MG/5 ML VIAL. ONE (07:36)
[2021-01-26] MEDS ORDERED: DEXAMETHASONE SOD PHOS 4 MG/ML VIAL ONE (07:36)
[2021-01-26] MEDS ORDERED: EPINEPHrine VIAL 30 MG/30 ML VIAL ONE (07:58)
[2021-01-26] MEDS ORDERED: SEVOFLURANE > 120 MINUTES. IH ONE (08:31)
[2021-01-26] MEDS ORDERED: NEOSTIGMINE METHYLSULFATE 5 MG/5 ML SYRINGE. ONE (08:38)
[2021-01-26] MEDS ORDERED: GLYCOPYRROLATE 1 MG/5 ML VIAL. ONE (08:39)
[2021-01-26] MEDS ORDERED: HYDROcodone/APAP 5/325MG 1 TAB TABLET ONE (09:03)
--- NOTE | 2021-01-26 09:35 | DISCH ---
DISCHARGE INSTRUCTIONS Condition on Discharge Condition on Discharge: Stable Activity After Discharge Activity Instructions for Disc: Other, see below Lifting Instructions after Dis: No heavy lifting (Limit lifting on right arm to 5 pounds to protect biceps tenodesis) Exercise Instruction after Dis: Exercise per therapy (Immediate range of motion of both shoulders to prevent recurrence of frozen shoulder) Driving Instructions after Dis: Do not drive Diet after Discharge Diet after Discharge: Regular Additional Diet Restrictions: resume home diet, soft foods Liquid Texture: Thin Liquid Wound Incision Care Wound/Incision Care: Ice to area for comfort, Change dressing (Remove dressing in 2 days may then shower no soaking until wound check postoperatively) Community/Resources/Services Services at Discharge: PT EVALUATE & TREAT (Immediate aggressive passive and active range of motion both shoulders due to bilateral frozen shoulder capsular release on right manipulation on left) Contacting the after DC Call your doctor for: Concerns you may have Follow-Up Follow up with: Dr. Rivero or Nicol 1 week postop Treatment/Equipment after DC Adaptive Equipment Issued: None TENA RIVERO MD Jan 26, 2021 09:35
[2021-01-26] MEDS ORDERED: OXYC1TAB19 PO (09:38)
[2021-01-26] MEDS ORDERED: fentaNYL PF VIAL 100 MCG/2 ML VIAL ONE (09:38)
[2021-01-26] MEDS: fentaNYL PF VIAL 100 MCG/2 ML VIAL IVP PRN ×2 (09:40→09:56)
[2021-01-26] MEDS ORDERED: INSULIN LISPRO 100 UNIT/ML 3ML VIAL for OP,RR ONLY. SQ ONE ×2 (09:45)
[2021-01-26] MEDS ORDERED: oxyCODONE/APAP 7.5/325 1 TAB TABLET PO ONE (10:00)
[2021-01-26 10:20] VITALS: BP 149/84
--- NOTE | 2021-01-26 10:31 | PDOC4 ---
Operative Note Operative Note Date of surgery: 01/26/2021 Preoperative diagnosis: Adhesive capsulitis bilateral shoulders with SLAP tear and expected biceps compromise on right, with current right shoulder pain worse than left Postoperative diagnosis: Same with SLAP tear biceps compromise on the right adhesive capsulitis bilaterally Operative procedure:1. Right shoulder arthroscopy capsular release superior labral debridement and biceps tenodesis 2. Left shoulder manipulation under anesthesia Surgeon: Mat Assist: Trey Thao assistant activities director Anesthesia: General plus interscalene block right shoulder Estimated blood loss: 10 cc Complications: None Operative indications: Please see my orthopedic clinic note for detailed operative indications and note briefly that both shoulders showed adhesive capsulitis and superior labral pathology. At the current time he said the right is much worse than the left symptomatically and we talked about the possibility of capsular release and likely biceps tenodesis addressing any other pathological conditions noted and plan tentatively since he has adhesive capsuli tis of the left shoulder with intra-articular pathology as well a plan to manipulate the left shoulder under anesthesia and do some rehab on both and see how he responds. We could then make a decision at a later time in terms of more definitive treatment of the left shoulder if necessary. We talked through risk benefits postoperative course of the surgery including continued pain infection nerve or blood vessel damage failure of the tenodesis medical or other anesthetic complications among others including recurrence of the adhesive capsulitis and the necessity of prompt physical therapy to maintain the motion that has been regained on both shoulders he agrees to proceed with surgical evaluation and treatment Operative text: Patient was identified procedure verified patient placed in the supine position on the operating table. After adequate amounts of general anesthesia plus a pre-existing scalene block were obtained to the right shoulder, timeout was performed patient procedure identified and verified and left shoulder was first examined under anesthesia and found to lack approximately the terminal 60 degrees of external rotation and abduction and approximately the terminal 60 degrees of elevation and about terminal 30 degrees of internal rotation. The left shoulder was then manipulated under anesthesia to restore full range of motion with no instability. He was then placed in the d ecubitus position right side up all bony prominences were well-padded and the right shoulder prepped and draped in standard sterile fashion. After timeout was again performed patient procedure identified and verified his motion was checked and found to lack approximately the terminal 50 degrees of elevation and about the same amount of external rotation in abduction. The shoulder was placed in the arthroscopic arm nowak with a total of 10 pounds of traction standard posterior portals established an anterior portal established using spinal needle localization and the shoulder joint was noted to be quite tight due to the adhesive capsulitis with obliteration of the inferior sulcus. Capsular release was performed with the bipolar electrocautery and further visualization carried out of the severely compromised superior labrum which consisted of a type II SLAP tear with significant fraying of the superior labrum and compromise of the biceps anchor therefore no repair was indicated and instead biceps was tagged an d tenotomy was carried out with the bipolar electrocautery and superior labrum was debrided back to stable tissue. Biceps was retrieved through an anterior portal and tenodesed in the upper aspect of the bicipital groove with a MOBEXOek biceps interference screw which gave excellent fixation after adequate tensioning and adventism of the biceps contour. The rotator cuff was noted to be intact from joint and bursal side and joint fluid drained and portals closed with buried Vicryl and PDS Monocryl suture. Patient was returned to recovery room in stable condition having tolerated procedure well and directed to start physical therapy as soon as practical pending any preauthorization required TENA FERGUSON MD Jan 26, 2021 10:31
== END 2021-01-26 11:00 | disposition home or self-care (01) ==
LOC: SURG 06:13
PROVIDERS: ATTEND Orthopaedic Surgery
DX: M75.01 Adhesive capsulitis of right shoulder (principal); S43.431A Superior glenoid labrum lesion of right shoulder, initial encounter; M25.511 Pain in right shoulder; I10 Essential (primary) hypertension; E78.00 Pure hypercholesterolemia, unspecified; E66.9 Obesity, unspecified; M19.90 Unspecified osteoarthritis, unspecified site; E11.9 Type 2 diabetes mellitus without complications; Z79.84 Long term (current) use of oral hypoglycemic drugs; Z79.899 Other long term (current) drug therapy; Z98.890 Other specified postprocedural states; X58.XXXA Exposure to other specified factors, initial encounter; Y93.89 Activity, other specified; Y92.89 Other specified places as the place of occurrence of the external cause; Y99.8 Other external cause status
CPT/HCPCS: 23700; 29822; 29828; 64415; 82962; A4565; A4930; A6253; A6402; C1713; J0171; J0690; J1100; J1815; J2250; J2405; J2704; J2710; J3010; J3490

== ENCOUNTER 2021-03-09 06:06 | Day surgery (SDC) | payer OTHER ==
[~2021-03-09] VITALS: Ht 172.7 cm; Wt 90.0 kg
[~2021-03-09 06:06] MED LIST changes: -HYDROmorphone 2 MG/ML VIAL IVP PRN; -IV RINGERS,LACTATED 1000ML 1,000 ML IV SCH; -LISI-517 PO; +LISI5TAB15 PO; -MORPHINE SULFATE 2 MG/ML INJ. IVP PRN; +OXYC1TAB19 PO; -PROCHLORPERAZINE 10 MG/2 ML VIAL. IVP PRN; -fentaNYL PF VIAL 100 MCG/2 ML VIAL IVP PRN
[2021-03-09] MEDS ORDERED: methylPREDNISolone ACETATE 80 MG/ML VIAL. IM ONE (06:30)
[2021-03-09] MEDS ORDERED: BUPIVACAINE MPF 0.5% 30 ML VIAL. INJ ONE (06:30)
[2021-03-09] MEDS ORDERED: INSULIN LISPRO 100 UNIT/ML 3ML VIAL for OP,RR ONLY. SQ ONE (06:45)
[2021-03-09] MEDS ORDERED: INSULIN LISPRO 100 UNIT/ML 3ML VIAL for OP,RR ONLY. SQ PRN (06:45)
[2021-03-09] MEDS ORDERED: IV RINGERS,LACTATED 1000ML 1,000 ML IV SCH ×2 (07:00→07:30)
--- NOTE | 2021-03-09 07:13 | DISCH ---
DISCHARGE INSTRUCTIONS Condition on Discharge Condition on Discharge: Stable Activity After Discharge Activity Instructions for Disc: No restrictions, Other, see below (No sling or other restriction, immediate range of motion both stretching on your own and with physical therapy) Lifting Instructions after Dis: No heavy lifting Exercise Instruction after Dis: Exercise per therapy Driving Instructions after Dis: Do not drive Weight Bearing Status after Di: As tolerated Diet after Discharge Diet after Discharge: Regular Additional Diet Restrictions: resume home diet, soft foods Liquid Texture: Thin Liquid Wound Incision Care Wound/Incision Care: Ice to area for comfort Community/Resources/Services Services at Discharge: PT EVALUATE & TREAT (Immediate aggressive passive and active range of motion to keep motion after manipulation, may progress to strengthening as tolerated no restrictions whatsoever) Contacting the [facility] after DC Call your doctor for: Concerns you may have Follow-Up Follow up with: Dr. Rivero or Nicol 7 to 10 days Treatment/Equipment after DC Adaptive Equipment Issued: None TENA RIVERO MD Mar 09, 2021 07:13
[2021-03-09] MEDS ORDERED: MORPHINE SULFATE 2 MG/ML INJ. ONE (07:18)
[2021-03-09] MEDS ORDERED: HYDROcodone/APAP 7.5/325MG 1 TAB TABLET ONE (07:24)
[2021-03-09 07:30] VITALS: BP 110/70
[2021-03-09] MEDS ORDERED: oxyCODONE/APAP 7.5/325 1 TAB TABLET PO ONE (07:30)
[2021-03-09] MEDS ORDERED: fentaNYL PF VIAL 100 MCG/2 ML VIAL IVP PRN (07:30)
[2021-03-09] MEDS ORDERED: HYDROmorphone 2 MG/ML VIAL IVP PRN (07:30)
[2021-03-09] MEDS ORDERED: PROCHLORPERAZINE 10 MG/2 ML VIAL. IVP PRN (07:30)
[2021-03-09] MEDS ORDERED: MORPHINE SULFATE 2 MG/ML INJ. IVP ONE (07:45)
[2021-03-09] MEDS: fentaNYL PF VIAL 100 MCG/2 ML VIAL IVP PRN ×2 (07:46→07:56)
--- NOTE | 2021-03-09 08:07 | PDOC4 ---
Operative Note Operative Note Date of surgery: 03/09/2021 Preoperative diagnosis: Adhesive capsulitis right shoulder Postoperative diagnosis: Same with lack of 70 degrees external rotation in abduction, 60 degrees terminal elevation and 25 degrees internal rotation Operative procedure: Manipulation right shoulder under anesthesia Surgeon: aMt Anesthesia: Propofol sedation delivered by anesthesia Complications: None Operative indications: Please see my preoperative orthopedic note for detailed operative indications and note that we covered the possibility of recurrent stiffness and the necessity of getting back immediately into physical therapy to keep the range of motion that was gained. All his questions were answered and he agrees to proceed with manipulation under anesthesia procedure Operative text: Patient was identified procedure verified patient placed in the supine position on the stretcher in the recovery room. After timeout was performed and procedure identified and verified, adequate amounts of propofol anesthesia were administered and the shoulder was examined found to lack 70 degrees external rotation in abduction, 60 degrees terminal elevation and 25 degrees internal rotation prior to the manipulation. The right shoulder was then manipulated with palpable and audible release of tissue and full range of motion regained and all planes including elevation of external rotation and abduction and internal rotation. The glenohumeral joint was then injected with 3 cc of half percent plain Marcaine and 1 cc 80 mg/cc Depo-Medrol. Patient tolerated the procedure well and he was instructed to immediately start physical therapy to maintain the range of motion that has been regained and he has therapy scheduled for tomorrow. No sling or other immobilization. TENA FERGUSON MD Mar 09, 2021 08:07
== END 2021-03-09 08:00 | disposition home or self-care (01) ==
LOC: SURG 06:06
PROVIDERS: ATTEND Orthopaedic Surgery
DX: M75.01 Adhesive capsulitis of right shoulder (principal); I10 Essential (primary) hypertension; E78.00 Pure hypercholesterolemia, unspecified; E66.9 Obesity, unspecified; M19.90 Unspecified osteoarthritis, unspecified site; E11.9 Type 2 diabetes mellitus without complications; Z79.84 Long term (current) use of oral hypoglycemic drugs; Z79.899 Other long term (current) drug therapy; Z98.890 Other specified postprocedural states; Z72.89 Other problems related to lifestyle; Z83.3 Family history of diabetes mellitus
CPT/HCPCS: 20610; 23700; 82962; J1040; J1815; J2270; J3010; J3490

== ENCOUNTER → 2021-03-10 | Outpatient (CLI) | payer OTHER, MEDICARE ==
[2021-03-09 07:30] VITALS: BP 110/70
[~2021-03-10] MED LIST changes: +LISI-517 PO; -LISI5TAB15 PO
--- NOTE | 2021-03-10 17:11 | RAD ---
XR CERVICAL SPINE 2-3V History: Reason: STATUS-POST CERVICAL FUSION. / Spl. Instructions: / History: Technique: 2 views cervical spine. Comparison: December 28, 2020 Findings: Anterior stabilization and interbody fusion C4-C6. Slight grade 1 anterolisthesis C4 on C5, unchanged . Normal vertebral body height. No acute fracture. Mild degenerative disc changes most prominent C3-C 4 and C6-C7. Prevertebral soft tissues are unremarkable. Impression: 1. Postoperative changes anterior stabilization and interbody fusion C4-C6. 2. Mild cervical spondylosis. Electronically signed by: Levi Rabago DO (03/10/2021 5:08 PM) [id number]
== END ==
LOC: RAD 15:07
PROVIDERS: ATTEND Neurological Surgery
DX: M47.812 Spondylosis without myelopathy or radiculopathy, cervical region (principal); M50.31 Other cervical disc degeneration, high cervical region; M43.12 Spondylolisthesis, cervical region; Z98.890 Other specified postprocedural states
CPT/HCPCS: 72040